=== PATIENT | male | born 2000 | race Hispanic/Latino ===

== ENCOUNTER 2024-03-23 00:38 | Emergency (ER) | payer OTHER, SELFPAY ==
[2024-03-23 00:46] VITALS: BP 157/90; PULSE 83; RESP 18; TEMP 36.9; O2SAT 97; BMI 40.0
--- NOTE | 2024-03-23 01:07 | ED.FALL ---
HPI - Fall General Chief Complaint: Fall Stated Complaint: fall hit his head, knee Time Seen by Provider: 03/23/24 01:07 Source: patient and family Mode of arrival: Ambulatory Limitations: no limitations History of Present Illness HPI Narrative: This is a 23-year-old male with no reported medical issues. Patient states he was walking in his garage tripped fell hitting his head on a metal container on a concrete floor and landing on his right knee and hitting his right hip. Patient states no loss of consciousness no neck pain, no back pain other than on the right hip region. No abdominal pain. No chest pain or shortness of breath. He has had some mild nausea but no vomiting. No dizziness. States his right knee hurts but he has been able to ambulate without issue. States he is sore all over. Denies any urinary or GI issues otherwise. No daily medications, no anticoagulants. Denies any recent surgeries. No reported allergies. No tobacco, occasional alcohol, none tonight, no recreational drugs. Review of Systems Review of Systems ROS Unobtainable: All systems reviewed & are unremarkable except as noted in HPI and below Patient History Social History Smoking Status: Never smoker Smoking Status: Never smoker alcohol intake frequency: a few times a month Substance Use Type: does not use Exam Narrative Exam Narrative: GEN: Patient appears in mild distress. HEAD: No evidence of trauma, no raccoon/Campbell sign. NECK: Nontender, painless range of motion, trachea midline Negative Nexus criteria, no midline line tenderness, distracting injury, altered mental status, neuro deficit, recent EtOH. EYES: PERRLA, EOMI ENT: External inspection normal, trachea is midline, TM's are normal no hemotypanum, Nares are clear, no septal hematoma, no dental or oral injury, airway is normal and with normal occlusion, No bony tenderness RESP: Chest is nontender and has symmetric movement, no ecchymosis, breath sounds are normal no crackles, wheezes or rales CVS: Heart sounds are normal, no murmur noted, No JVD. ABG/GI: Nontender, soft, normal bowel sounds, no distention, no organomegaly, pelvic rock is negative NEURO: Oriented AOx3, neuro is grossly intact, sensation and motor is normal all 4 extremities moving, cranial nerves II through XII are intact, GCS is 15 PSYCH: Normal mood and affect SKIN: Intact, warm and dry, no crepitus and without decubitus, patient has small amount of ecchymosis on the right hip. BACK: No CVA tenderness, no vertebral tenderness, no step-off's, no crepitus EXT: Patient has a mild tenderness over the right kneecap, full range of motion, no joint laxity, patient is able to ambulate without issue. Hips are nontender, no pedal edema, normal color and temperature, normal range of motion of extremities with normal tendon exam, 2+ pulses in all four extremities Initial Vital Signs Initial Vital Signs: Vital Signs Temperature 98.4 F 03/23/24 00:46 Pulse Rate 83 03/23/24 00:46 Respiratory Rate 18 03/23/24 00:46 Blood Pressure 157/90 H 03/23/24 00:46 Pulse Oximetry 97 03/23/24 00:46 Oxygen Delivery Method Room Air 03/23/24 00:[address] Head Rule Age <16 years old: No Patient on blood thinners: No Seizure after injury: No Exclusion: Patient NOT Excluded, Proceed to next steps GCS < 15 at 2 hr post trauma: No Suspected open or depressed skull fracture: No Any sign of basilar skull fracture (hemotympanum, raccoon eyes, Campbell's sign, CSF jennifer-/rhinorrhea): No Two or more episodes of vomiting: No Age greater or equal to 65 years: No Retrograde amnesia to the event greater or equal to 30 min: No Dangerous Mechanism (pedestrian vs. mv, occupant ejected from mv, fall from >3 ft or > 5 stairs): No Recommendation: CT unnecessary GCS Param coma scale eye opening: Spontaneous Param coma scale verbal response: Orientated Param coma scale motor response: Obey commands [place] coma scale total score: 15 Nexus Score for C-Spine Focal Neurologic deficit present: No Midline spinal tenderness present: No Altered level of conciousness present: No Intoxication present: No Distracting Injury Present: No Nexus Criteria for C-spine: 0 Course Vital Signs Vital signs: Vital Signs - 8 hr 03/23/24 00:46 Temperature 98.4 F Pulse Rate 83 Respiratory Rate 18 Blood Pressure 157/90 H Pulse Oximetry 97 Oxygen Delivery Method Room Air MDM - Fall MDM Narrative Medical decision making narrative: 23-year-old male with fall hitting his head on a metal container, no loss of consciousness or other red flag symptoms he has not anticoagulated. Has a mild nausea, a little bit of a headache but not described as severe. Ambulating without issue but does have little bit of right knee pain. Patient exam is overall reassuring, does not need CT imaging at this time. Discussed return precautions all questions answered. Discharge Plan Departure Patient Disposition: Home Clinical Impression: Concussion, Acute knee pain Instructions: DI for Concussion Activity Restrictions/Additional Instructions: Follow up for recheck as needed. You may have sustained a mild concussion. You can increase your activity as tolerated. You may take Tylenol up to a 1000 mg every 6 hours and/or ibuprofen up to 600 mg every 6 hours as needed for pain. You can take Zofran 1 tablet every 6 hours as needed for nausea Please return for rapidly worsening headaches, sudden vision changes, persistent vomiting, new neck or back pain, new chest pain or shortness of breath, new numbness tingling or weakness, loss of bowel or bladder control or other new or concerning changes. Referrals: ProviderDaryl [Primary Care Provider] - Stand Alone Forms: Patient Portal/API, Work Release Note
== END 2024-03-23 01:29 | disposition home or self-care (01) ==
PROVIDERS: Emergency Provider Emergency Medicine
DX: S06.0X0A Concussion without loss of consciousness, initial encounter (principal); M25.561 Pain in right knee; W01.190A Fall on same level from slipping, tripping and stumbling with subsequent striking against furniture, initial encounter; Y93.01 Activity, walking, marching and hiking
CPT/HCPCS: 99281; 99282